=== PATIENT | female | born 1990 | race Caucasian/White ===

== ENCOUNTER 2016-08-31 19:23 | Emergency (ER) | payer MEDICAID ==
[~2016-08-31] VITALS: Ht 167.6 cm; Wt 70.9 kg
[2016-08-31 19:29] VITALS: TEMP 98.3
[2016-08-31] MEDS ORDERED: PRENATAL PO (19:55)
[2016-08-31 20:32] LABS: PH 6 (5-8); URINE APPEARANCE Clear; URINE BACTERIA Rare /hpf; URINE BILIRUBIN Negative (NEGATIVE); URINE BLOOD Negative (NEGATIVE); URINE COLOR Yellow; URINE GLUCOSE Negative (NEGATIVE); URINE KETONE Negative (NEGATIVE); URINE RBC 0-2 /hpf; URINE UROBILINOGEN Negative (NEGATIVE); URINE WBC 0-2 /hpf
[2016-08-31 21:29] VITALS: BP 114/78; PULSE 76
== END 2016-08-31 21:28 | disposition home or self-care (01) ==
LOC: COL.ER 19:23
PROVIDERS: Emergency Medicine
DX: O9A.212 Injury, poisoning and certain other consequences of external causes complicating pregnancy, second trimester (principal); S50.02XA Contusion of left elbow, initial encounter; Z3A.18 18 weeks gestation of pregnancy; W10.9XXA Fall (on) (from) unspecified stairs and steps, initial encounter; Y92.008 Other place in unspecified non-institutional (private) residence as the place of occurrence of the external cause

== ENCOUNTER 2017-01-31 07:38 | Inpatient (IN) | payer MEDICAID ==
[~2017-01-31] VITALS: Ht 167.6 cm; Wt 80.0 kg
[2017-01-31] VITALS (23 sets, daily range): BP systolic 104–137; BP diastolic 58–87; PULSE 65–98; TEMP 97.5–98.8
[~2017-01-31 07:38] MED LIST: PRENATAL PO
[2017-01-31 08:30] LABS: BASO % 0.3 % (0.0-2.0); EOS % 0.4 % (0-4.0); GRAN # 7.4 (1.4-6.5); GRAN % 67.1 % (42.2-75.2); HEMATOCRIT 37.6 % (37.0-47.0); HEMOGLOBIN 13.2 g/dl (12.5-16.0); LYMPH # 2.6 (1.2-3.4); LYMPH % 23.3 % (20.0-51.0); MEAN CELL VOLUME 85 fl (80.0-100.0); MEAN CORPUSCULAR HEMOGLOBIN 30 pg (27.0-31.0); MEAN CORPUSCULAR HGB CONC 35 g/dl (33.0-37.0); MEAN PLATELET VOLUME 9.4 fl (7.4-10.4); MONO # 0.9 (0.1-0.6); MONO % 7.9 % (1.7-9.3); PLATELET COUNT 282 K/mm3 (130-400); RED BLOOD COUNT 4.44 M/mm3 (4.10-5.30); REDCELL DISTRIBUTION WIDTH-CV 12.8 % (11.5-14.5); WHITE BLOOD COUNT 11.1 K/mm3 (4.8-10.8)
[2017-02-01 02:00] VITALS: BP 98/55; PULSE 58; TEMP 98
[2017-02-01 05:54] VITALS: BP 101/55; PULSE 60; TEMP 97.9
[2017-02-01 07:00] VITALS: BP 117/70; PULSE 62; TEMP 97.7
[2017-02-01] MEDS ORDERED: SENOKOT S 50 MG1 TAB PO (09:18)
[2017-02-01] MEDS ORDERED: IBU800 M1 PO (09:18)
[2017-02-01] MEDS ORDERED: PERCOCET 325 MG1 TA2 PO (09:18)
[2017-02-01 12:15] VITALS: BP 119/73; PULSE 72; TEMP 97.9
[2017-02-01 17:15] VITALS: BP 123/66; PULSE 82; TEMP 97.8
== END 2017-02-01 19:50 | disposition home or self-care (01) | DRG 767 ==
LOC: LDRO 07:38 → LDR 07:38 → OB 08:14 → LDR 08:14 → LDRO 08:14 → OB 13:54 → LDR 13:54 → LDRO 14:58 → OB 21:10
PROVIDERS: Obstetrics & Gynecology
PROC: 10E0XZZ Delivery of Products of Conception, External Approach (ICD-10-PCS; principal; 2017-01-31)
PROC: 0HQ9XZZ Repair Perineum Skin, External Approach (ICD-10-PCS; 2017-01-31)
PROC: 10D17ZZ Extraction of Products of Conception, Retained, Via Natural or Artificial Opening (ICD-10-PCS; 2017-01-31)
DX: O48.0 Post-term pregnancy (principal); O70.0 First degree perineal laceration during delivery; O73.1 Retained portions of placenta and membranes, without hemorrhage; Z3A.40 40 weeks gestation of pregnancy; Z37.0 Single live birth
CPT/HCPCS: J2590; J7120

== ENCOUNTER → 2019-09-24 | Outpatient (CLI) | payer MEDICAID ==
[~2019-09-24] MED LIST changes: +IBU800 M1 PO; +PERCOCET 325 MG1 TA2 PO; +SENOKOT S 50 MG1 TAB PO
== END ==
LOC: COL.CARD 11:59
DX: R00.2 Palpitations (principal)

== ENCOUNTER → 2021-08-02 | Outpatient (CLI) | payer MEDICAID | LOC: COL.RAD 13:20 | DX: R22.2 Localized swelling, mass and lump, trunk (principal); M79.9 Soft tissue disorder, unspecified ==